=== PATIENT | female | born 1955 | race Caucasian/White ===

== ENCOUNTER 2016-12-10 07:46 | Day surgery (SDC) | payer OTHER ==
[2016-12-09 08:30] VITALS: BMI 23.8
[~2016-12-10 07:46] MED LIST: LACTATED RINGERS 1,000 ML IV SCH
[2016-12-10 08:45] VITALS: RESP 16; TEMP 97.3
[2016-12-10] MEDS ORDERED: LIDOCAINE 1% 20 ML VIAL (10MG/ML) FOR IV START SQ ONE (08:46)
[2016-12-10] MEDS ORDERED: LIDOCAINE 1% INJ 10MG/ML (20 ML MDV) ONE (09:08)
[2016-12-10] MEDS ORDERED: PROPOFOL 10 MG/ML 20 ML VIAL IV ONE (09:08)
--- NOTE | 2016-12-10 09:11 | P.GSHP ---
History of Present Illness H&P Date: 12/10/16 Chief Complaint: Epigastric pain, screening colonoscopy This a 61-year-old female who presents today for EGD and colonoscopy. She's had some complaints of epigastric abdominal pain. Her last colonoscopy was over 10 years ago. Past Medical History Past Medical History: Cancer Additional Past Medical History / Comment(s): abdominal pain, hx breast cancer History of Any Multi-Drug Resistant Organisms: None Reported Past Surgical History: Back Surgery, Breast Surgery, Section, Hernia Repair Additional Past Surgical History / Comment(s): stacy. mastectomy, neck fusion, back fusion Past Anesthesia/Blood Transfusion Reactions: No Reported Reaction Smoking Status: Former smoker Past Alcohol Use History: None Reported Additional Past Alcohol Use History / Comment(s): smoked 6 months, <1ppd quit "many years ago" Past Drug Use History: None Reported - Past Family History Father Family Medical History: Cancer Additional Family Medical History / Comment(s): colon cancer Medications and Allergies Home Medications Medication Instructions Recorded Confirmed Type Ergocalciferol (Vitamin D2) 50,000 unit PO MOWE 12/09/16 12/10/16 History [Vitamin D2] Allergies Allergy/AdvReac Type Severity Reaction Status Date / Time latex Allergy Anaphylaxis Verified 12/09/16 08:14 Surgical - Exam Vital Signs Temp Pulse Resp BP Pulse Ox 97.3 F L 70 16 117/71 98 12/10/16 08:44 12/10/16 08:44 12/10/16 08:44 12/10/16 08:44 12/10/16 08:44 - General well developed, no distress - Eyes PERRL - ENT normal pinna - Neck no masses - Respiratory normal expansion - Cardiovascular Rhythm: regular - Abdomen Abdomen: soft, non tender Assessment and Plan Plan: Epigastric dull pain. We'll perform EGD. We'll also perform screening colonoscopy.
--- NOTE | 2016-12-10 09:33 | P.OP ---
Date of Procedure: 12/10/16 Preoperative Diagnosis: Epigastric dull pain Screening colonoscopy Postoperative Diagnosis: Antral gastritis Duodenitis Hiatal hernia Esophagitis Mild diverticulosis Procedure(s) Performed: EGD Colonoscopy Anesthesia: MAC Surgeon: Nirmal Sanchez Pathology: other (Duodenum, antrum, esophagus) Condition: stable Disposition: PACU Description of Procedure: Patient's placed on the endoscopy table in the lateral position. She received IV sedation. The gastroscope some placed oropharynx and passed in the esophagus and into the stomach. The scope was then placed through the pylorus. The first and second portion of the duodenum appeared mildly inflamed and a biopsies performed. The scope was then brought back and the antrum this. Mildly inflamed. A biopsies performed. Scope was unretroflexed and remainder of the stomach appeared normal. There was a hiatal hernia. The GE junction was at 40 cm. The distal esophagus. Inflamed a biopsies performed. The proximal esophagus appeared normal. The scope was withdrawn for patient. Next digital rectal exam was performed which revealed no abnormalities. The flexible colonoscope was then placed patient anus and passed throughout the entire colon. The ileocecal valve was visualized. The cecum, ascending and transverse colon appeared normal. In the descending and sigmoid colon there was mild diverticular changes. Scope was then brought back the rectum and this appeared normal. Scope was withdrawn for patient.
[2016-12-10 09:52] VITALS: BP 124/73; PULSE 73
== END 2016-12-10 10:08 | disposition home or self-care (01) ==
LOC: ORWHC2ENDO 07:46
PROVIDERS: ATTEND Surgery
DX: Z12.11 Encounter for screening for malignant neoplasm of colon (principal); K57.30 Diverticulosis of large intestine without perforation or abscess without bleeding; K29.80 Duodenitis without bleeding; K29.70 Gastritis, unspecified, without bleeding; K31.9 Disease of stomach and duodenum, unspecified; K21.0 Gastro-esophageal reflux disease with esophagitis; K44.9 Diaphragmatic hernia without obstruction or gangrene; Z80.0 Family history of malignant neoplasm of digestive organs; Z91.040 Latex allergy status; Z79.899 Other long term (current) drug therapy; Z87.891 Personal history of nicotine dependence
CPT/HCPCS: 88305; 88342; 43239; J2001; J2704; G0105; 99153

== ENCOUNTER 2016-12-20 11:51 | Day surgery (SDC) | payer OTHER ==
[2016-12-17 15:26] VITALS: BMI 23.8
[~2016-12-20 11:51] MED LIST changes: +DEXAMETHASONE SOD PHOSPHATE 10 MG/ML 1 ML VIAL IV ONE; +HEPARIN SODIUM,PORCINE 5,000 UNIT/ML 1 ML VIAL SQ ONE; +MIDAZOLAM 2 MG/2 ML VIAL IV PRN; +ONDANSETRON 4 MG/2 ML VIAL IVP ONE; +SCOPOLAMINE 1.5MG/72HR PATCH TRANSDERM ONE; +ceFAZolin 2 GM in SODIUM CHLORIDE 0.9% 100 ML IVPB ONE
[2016-12-20] MEDS ORDERED: LIDOCAINE 1% 20 ML VIAL (10MG/ML) FOR IV START INTRADERMA ONE (12:13)
--- NOTE | 2016-12-20 12:49 | P.GSHP ---
History of Present Illness H&P Date: 12/20/16 Chief Complaint: Right upper quadrant pain This a 61-year-old female who presents today for laparoscopic cholecystectomy. Patient had complaints of right quadrant pain. Her recent HIDA scans abnormal. She presents today for laparoscopic cholecystectomy. - Constitutional Constitutional: Reports as per HPI Past Medical History Past Medical History: Cancer Additional Past Medical History / Comment(s): HX OF BREAST CANCER, ABDOMINAL PAIN AND NAUSEA. History of Any Multi-Drug Resistant Organisms: None Reported Past Surgical History: Back Surgery, Breast Surgery, Section, Hernia Repair Additional Past Surgical History / Comment(s): stacy. mastectomy, neck fusion, back fusion, EGD & COLONOSCOPY Past Anesthesia/Blood Transfusion Reactions: No Reported Reaction Past Psychological History: No Psychological Hx Reported Smoking Status: Former smoker Past Alcohol Use History: None Reported Additional Past Alcohol Use History / Comment(s): smoked 6 months, <1ppd quit "many years ago" Past Drug Use History: None Reported - Past Family History Father Family Medical History: Cancer Additional Family Medical History / Comment(s): colon cancer Medications and Allergies Home Medications Medication Instructions Recorded Confirmed Type Ergocalciferol (Vitamin D2) 50,000 unit PO MOWE 12/09/16 12/17/16 History [Vitamin D2] Allergies Allergy/AdvReac Type Severity Reaction Status Date / Time latex Allergy Anaphylaxis Verified 12/17/16 15:15 Surgical - Exam Vital Signs Temp Pulse Resp BP Pulse Ox 97.5 F L 75 16 126/65 98 12/20/16 12:10 12/20/16 12:10 12/20/16 12:10 12/20/16 12:10 12/20/16 12:10 - General well developed, no distress - Eyes PERRL - ENT normal pinna - Neck no masses - Respiratory normal expansion - Cardiovascular Rhythm: regular - Abdomen Abdomen: soft, non tender Assessment and Plan Plan: Chronic cholecystitis. We'll perform laparoscopic cholecystectomy
[2016-12-20] MEDS ORDERED: KETOROLAC 30 MG/ML 1 ML VIAL ONE (13:11)
[2016-12-20] MEDS ORDERED: LIDOCAINE 1% INJ 10MG/ML (20 ML MDV) ONE (13:11)
[2016-12-20] MEDS ORDERED: fentaNYL (PF) 50 MCG/ML 2 ML AMP ONE (13:11)
[2016-12-20] MEDS ORDERED: GLYCOPYRROLATE 0.2 MG/ML 2 ML VIAL ONE (13:11)
[2016-12-20] MEDS ORDERED: SUCCINYLCHOLINE CHLORIDE 100 MG/5 ML SYR IV ONE (13:11)
[2016-12-20] MEDS ORDERED: MIDAZOLAM 2 MG/2 ML VIAL ONE (13:11)
[2016-12-20] MEDS ORDERED: NEOSTIGMINE 1 MG/ML 10 ML VIAL ONE (13:11)
[2016-12-20] MEDS ORDERED: PROPOFOL 10 MG/ML 20 ML VIAL IV ONE (13:11)
[2016-12-20] MEDS ORDERED: ROCURONIUM BROMIDE 10 MG/ML 10 ML VIAL IV ONE (13:11)
[2016-12-20] MEDS ORDERED: BUPIVACAIN-EPI 0.25%-1:200,000 30 ML VIAL SQ ONE (13:33)
--- NOTE | 2016-12-20 13:46 | P.OP ---
Date of Procedure: 12/20/16 Preoperative Diagnosis: Cholecystitis Postoperative Diagnosis: Cholecystitis Procedure(s) Performed: Laparoscopic cholecystectomy Anesthesia: PATT Surgeon: Nirmal Sanchez Estimated Blood Loss (ml): 5 Pathology: other (Gallbladder) Condition: stable Disposition: PACU Description of Procedure: The patient was placed on the operating table. The patient received a general endotracheal tube anesthesia. The patients abdomen was prepped and draped in the usual sterile fashion. Through an infraumbilical stab incision, the fascia of the anterior abdominal wall was grasped with a pair of Kochers and then the Veress needle was placed in the peritoneal cavity. Position of the Veress needle was confirmed with positive drop test. The abdomen was then insufflated. After adequate insufflation, the 10 mm trocar was placed in the peritoneal cavity. Following this the laparoscope was placed in the peritoneal cavity. The patient was placed in the head-up, right side up position and then a 5 mm trocar was placed in the right lateral and right subcostal position under direct visualization. A 8 mm trocar was placed in the epigastric position. The gallbladder was grasped in the fundus and infundibulum. Traction on the gallbladder was placed in the lateral and the cephalad positions. The triangle of Calot was visualized.. The cystic duct was bluntly dissected until the union of the cystic duct and common bile duct was seen. The cystic duct was then divided and sealed with the Harmonic scissors. A PDS Endoloop was then placed throughout the cystic duct stump. The cystic artery divided and sealed with the Harmonic scissors. The gallbladder was then removed from the liver bed using Harmonic scissors. The gallbladder was then extracted through the epigastric port site. Operative field was checked for any bleeding spots and Harmonic scissors was used to coagulate the liver bed. The abdomen was irrigated. The trocars were removed. The skin was closed using interrupted 3-0 Vicryl suture. Dermabond dressing were applied. The patient tolerated the procedure well.
[2016-12-20 14:04] VITALS: TEMP 97.2
[2016-12-20] MEDS: HYDROmorphone 1 MG/ML 1 ML SYRINGE IVP PRN ×4 (14:10→14:46)
[2016-12-20] MEDS ORDERED: ONDANSETRON 4 MG/2 ML VIAL IVP ONE (14:18)
[2016-12-20 16:23] VITALS: PULSE 55
[2016-12-20] MEDS ORDERED: HYDROcodone/APAP 7.5-325MG 1 EACH TAB PO ONE (16:43)
[2016-12-20 16:46] VITALS: BP 110/73; RESP 16
== END 2016-12-20 17:36 | disposition home or self-care (01) ==
LOC: OR 11:51
PROVIDERS: ATTEND Surgery
DX: K81.1 Chronic cholecystitis (principal); K21.9 Gastro-esophageal reflux disease without esophagitis; Z91.040 Latex allergy status; Z79.899 Other long term (current) drug therapy; Z87.891 Personal history of nicotine dependence
CPT/HCPCS: 47562; 88304; J2250; J1644; J1100; J2710; J0690; J2405; J2001; J3010; J1885; J1170; J0330; J2704

== ENCOUNTER → 2021-09-17 | Outpatient (CLI) | payer OTHER, BC ==
--- NOTE | 2021-09-17 10:31 | CT ---
EXAMINATION TYPE: CT chest wo con DATE OF EXAM: 09/17/2021 COMPARISON: None HISTORY: chemical Esophagitis CT DLP: 318 mGycm, Automated exposure control for dose reduction was used. CONTRAST: Performed injected with 0 mL of Isovue 300. TECHNIQUE: Axial images were obtained at 5 mm thick sections. Reconstructed images are reviewed on [employer] computer in the coronal plane. FINDINGS: Portion of the thyroid visualized is normal. Bilateral breast prostheses are present. No suspicious lung nodules or focal infiltrates are present. Some minimal streak opacity medially at the posterior medial right lung base. Correlate for atelectasis. No enlarged mediastinal or hilar adenopathy is evident. The ascending aorta diameter at the level o f the main pulmonary artery is 2.8 cm. The main pulmonary artery diameter at the bifurcation is 2.3 cm. Esophageal course appears unremarkable. No suspicious abnormalities within the esophagus. CT is s uboptimal for esophagus evaluation. Esophagram could be performed. Limited CT sections are obtained through the upper abdomen. Abdomen is essentially unremarkable. IMPRESSIONS: 1. No suspicious acute abnormality. 2. No suspicious abnormality associated with the esophagus identified by CT. CT evaluation is subopti mal for esophagus evaluation however. Esophagram is recommended for evaluation.
== END | disposition home or self-care (01) ==
LOC: RADCTMAIN 07:21
PROVIDERS: ATTEND Family Medicine
DX: Z03.89 Encounter for observation for other suspected diseases and conditions ruled out (principal)
CPT/HCPCS: 71250

== ENCOUNTER → 2023-01-28 | Outpatient (CLI) | payer OTHER ==
--- NOTE | 2023-01-28 13:36 | XR ---
EXAMINATION TYPE: XR lumbosacral spine min 4V DATE OF EXAM: 01/28/2023 CLINICAL HISTORY: pain COMPARISON: NONE TECHNIQUE: Frontal, lateral, and oblique images of the lumbar spine are obtained. FINDINGS: There are 5 lumbar type vertebral bodies identified. The lumbar spine shows satisfactory alignment without evidence of acute fracture or dislocation. Vertebral body heights are within normal limits. Moderate degenerative disc space narrowing L5-S1. Grade 1 anterolisthesis at this level of 4 mm. Moderate facet joint arthropathy. The remaining levels are felt to be within normal limits. Th e overlying soft tissue appears unremarkable. IMPRESSION: No acute fracture or dislocation is seen in the lumbar spine.ICD 10 NO FRACTURE, INITIAL EVALUATION
--- NOTE | 2023-01-28 13:49 | XR ---
EXAMINATION TYPE: XR cervical spine comp DATE OF EXAM: 01/28/2023 CLINICAL HISTORY: pain COMPARISON: NONE TECHNIQUE: Frontal, lateral, oblique, swimmers, and open mouth view of the cervical spine are obtaine d. FINDINGS: Postsurgical changes of anterior cervical discectomy and fusion extending from C4 through C 7 with anterior fixation plate and screws in place. Postoperative alignment appears near-anatomic. De generative disc space narrowing at C3-4 moderate in degree. No fracture or malalignment evident. IMPRESSION: No acute fracture or dislocation is seen in the cervical spine.ICD 10 NO FRACTURE, INITI AL EVALUATION
== END | disposition home or self-care (01) ==
LOC: RADXRMAIN 12:01
PROVIDERS: ATTEND Family Medicine
DX: M54.50 Low back pain, unspecified (principal); M54.2 Cervicalgia
CPT/HCPCS: 72050; 72110

== ENCOUNTER → 2023-08-22 | Outpatient (CLI) | payer MEDICARE ==
--- NOTE | 2023-08-22 10:58 | USB ---
Reason for Exam: Clinical finding. Patient History: Menarche at age 13. Excisional Biopsy on the Left side. Risk Values: Camila 5 year model risk: 1.6%. NCI Lifetime model risk: 5.7%. Technique: Method: Targeted. Prior Study Comparison: 01/12/2004 Bilateral Screening Mammogram, [facility]. 01/17/2004 Left Special View Mammogram, [facility]. 07/20/2004 Bilateral Special View Mammogram, [facility]. Findings: The upper outer quadrant of the left breast, the axilla of the left breast and the retroareolar of the left breast were scanned. No solid or cystic masses are identified. Patient's implant is identified. No obvious rupture of the implants is evident.. Overall Assessment: Benign, BI-RAD 2 Management: Screening Mammogram of both breasts. A clinical breast exam by your physician is recommended on an annual basis and results should be correlated with mammographic findings. This exam should not preclude additional follow-up of suspicious palpable abnormalities. Results were given to the patient verbally at the time of exam. Electronically signed and approved by: Bossman Pedraza D.O. Radiologis
--- NOTE | 2023-08-22 16:40 | NM ---
EXAMINATION TYPE: NM DatScan Brain SPECT DATE OF EXAM: 08/22/2023 COMPARISON: NONE CLINICAL INDICATION: Female, 68 years old with history of R25.1 Z82.0; TECHNIQUE: 10 drops of Lugol's solution was administered 1 hour prior to injection as a thyroid bloc holden agent. After the administration of 4.6 mCi I-123 Ioflupane DaTscan. Images obtained [address] injection. SPECT images of the brain were acquired with axial and coronal reconstructions. FINDINGS: No abnormal increased background uptake. Normal symmetric activity within the bilateral corpus striat a. IMPRESSION: This normal appearance is against a diagnosis of Parkinson's disease or parkinsonian synd amando. It is seen in normal individuals and also in those with essential tremor.
== END | disposition home or self-care (01) ==
LOC: RADUSWWP 09:26
PROVIDERS: ATTEND Family Medicine
DX: N64.4 Mastodynia (principal); R25.1 Tremor, unspecified; Z82.0 Family history of epilepsy and other diseases of the nervous system; Z85.3 Personal history of malignant neoplasm of breast
CPT/HCPCS: 76642; 78803; A9584

== ENCOUNTER → 2024-02-06 | Day surgery (SDC) | payer MEDICARE ==
[2024-02-05 10:41] VITALS: BMI 20.6
[~2024-02-06] MED LIST changes: -DEXAMETHASONE SOD PHOSPHATE 10 MG/ML 1 ML VIAL IV ONE; -HEPARIN SODIUM,PORCINE 5,000 UNIT/ML 1 ML VIAL SQ ONE; -LACTATED RINGERS 1,000 ML IV SCH; -MIDAZOLAM 2 MG/2 ML VIAL IV PRN; -ONDANSETRON 4 MG/2 ML VIAL IVP ONE; +PROPOFOL 10 MG/ML 20 ML VIAL IV ONE; -SCOPOLAMINE 1.5MG/72HR PATCH TRANSDERM ONE; -ceFAZolin 2 GM in SODIUM CHLORIDE 0.9% 100 ML IVPB ONE
[2024-02-06] MEDS: LACTATED RINGERS 1,000 ML IV SCH (12:43)
[2024-02-06 12:55] VITALS: TEMP 97.6
--- NOTE | 2024-02-06 13:50 | P.PCN ---
Date of Procedure: 02/06/24 Procedure(s) Performed: BRIEF HISTORY: Patient is a 68-year-old pleasant white femalescheduled for an elective colonoscopy as a part of Screening for colon cancer and family history of colon cancer. Her father was diagnosed withcolon cancer at age 55. PROCEDURE PERFORMED: Colonoscopy. PREOPERATIVE DIAGNOSIS:Screening for colon cancer and family history of colon cancer IV sedation per Anesthesia. PROCEDURE: After informed consent was obtained, the patient, was brought into the endoscopy unit. IV sedation was administered by Anesthesia under continuous monitoring. Digital rectal examination was normal. Initially the Olympus CF-160 flexible video colonoscope was then inserted in the rectum, gradually advanced into the cecum without any difficulty. Careful examination was performed as the scope was gradually being withdrawn. Ileocecal valve and the appendiceal orifice were visualized and appeared normal. Prep was excellent. Mucosa of the cecum, ascending colon, transverse colon, descending colon, sigmoid colon, and rectum appeared normal.Scattered sigmoid diverticulosis. Retroflexion was performed in the rectum and no lesions were seen. The patient tolerated the procedure well. IMPRESSION: Normal-appearing colon from rectum to cecum with no evidence of colorectal neoplasia . Scatteredsigmoid diverticulosis. RECOMMENDATIONS: Findings of this examination were discussed with the patient As well as her family. She was advised to have a repeat screening colonoscopyIn 5 years because of family history of colon cancer..
[2024-02-06 14:20] VITALS: BP 115/72; PULSE 72; RESP 16
== END ==
LOC: ORWHC2ENDO 11:55
PROVIDERS: ATTEND Internal Medicine Gastroenterology
DX: Z12.11 Encounter for screening for malignant neoplasm of colon (principal); K57.30 Diverticulosis of large intestine without perforation or abscess without bleeding; Z80.0 Family history of malignant neoplasm of digestive organs; Z91.040 Latex allergy status; Z85.3 Personal history of malignant neoplasm of breast; Z79.899 Other long term (current) drug therapy; Z98.890 Other specified postprocedural states
CPT/HCPCS: J2704; G0105